=== PATIENT | male | born 1980 | race Caucasian/White ===

== ENCOUNTER 2019-09-05 01:23 | Emergency (ER) | payer SELFPAY ==
[~2019-09-05] VITALS: Ht 182.9 cm; Wt 90.0 kg
[2019-09-05 04:07] VITALS: BP 119/76
== END 2019-09-05 04:10 | disposition home or self-care (01) ==
LOC: ER 01:23
DX: R00.2 Palpitations (principal); I49.9 Cardiac arrhythmia, unspecified
CPT/HCPCS: 99283

== ENCOUNTER 2019-11-15 20:42 | Emergency (ER) | payer SELFPAY ==
[~2019-11-15] VITALS: Ht 182.9 cm; Wt 95.7 kg
[2019-11-15] MEDS ORDERED: IBUPROFEN 600MG TABLET PO STA (21:32)
[2019-11-15 22:58] VITALS: BP 127/78
== END 2019-11-15 22:59 | disposition home or self-care (01) ==
LOC: ER 20:42
DX: B34.9 Viral infection, unspecified (principal); R05 Cough
CPT/HCPCS: 71045; 99283

== ENCOUNTER 2020-02-09 17:49 | Emergency (ER) | payer MEDICAID ==
[~2020-02-09] VITALS: Ht 182.9 cm; Wt 91.0 kg
[2020-02-09] MEDS ORDERED: KETOROLAC 30MG/ML VIAL IV STA (20:31)
[2020-02-09] MEDS ORDERED: ONDANSETRON HCL 4MG/2ML INJ IV STA (20:31)
[2020-02-09] MEDS ORDERED: SODIUM CHLORIDE 0.9% 1,000 ML IV ONE (20:31)
[2020-02-09 21:42] LABS: CHLORIDE 107 mEq/L (98-107)
[2020-02-09 21:43] LABS: PROTHROMBIN TIME 10.8 sec (9.6-11.0)
[2020-02-09 21:45] LABS: BASOPHILS % 0.9 % (0.0-2.0); EOSINOPHILS % 1.9 % (0.0-5.0); HEMOGLOBIN. 14.8 g/dL (14.0-18.0); LYMPHOCYTES % 34.2 % (20.0-50.0); MEAN CORPUSCULAR HEMOGLOBIN 30.9 pg (28.0-32.0); MEAN CORPUSCULAR VOLUME 89.9 fL (80.0-94.0); MEAN PLATELET VOLUME 8.4 fl (7.4-10.4); MONOCYTES % 11.3 % (2.0-8.0); NEUTROPHILS % 51.7 % (40.0-76.0); PLATELET 261 x1000/uL (130-400); RED BLOOD CELL COUNT 4.79 mill/uL (4.7-6.1); RED CELL DISTRIBUTION WIDTH 13.7 % (11.6-14.6)
[2020-02-09 23:06] LABS: CLARITY URINE CLEAR (CLEAR); COLOR URINE YELLOW (YELLOW); KETONES URINE TRACE (NEGATIVE); LEUKOCYTE ESTERASE URINE NEGATIVE (NEGATIVE); NITRITE URINE NEGATIVE (NEGATIVE); OCCULT BLOOD URINE NEGATIVE (NEGATIVE); PROTEIN URINE NEGATIVE (NEGATIVE); SPECIFIC GRAVITY URINE 1.026 (1.005-1.030)
[2020-02-09 23:30] VITALS: BP 119/67
== END 2020-02-09 23:55 | disposition home or self-care (01) ==
LOC: ER 17:49
DX: R10.84 Generalized abdominal pain (principal); R07.89 Other chest pain; R03.0 Elevated blood-pressure reading, without diagnosis of hypertension
CPT/HCPCS: 36415; 74021; 80053; 81003; 83690; 83880; 84484; 85025; 85610; 93005; 96374; 96375; 99285; J1885; J2405; J7030